=== PATIENT | male | born 1955 | race Caucasian/White ===

== ENCOUNTER 2021-11-22 21:39 | Emergency (ER) | payer BC, SELFPAY ==
--- NOTE | ~2021-11-22 | CT_ITS ---
EXAMINATION: CT brain wo con DATE: 11/22/2021 23:07 INDICATION: Fall with head injury and left forehead laceration TECHNIQUE: Computed tomography (CT) of the head was performed without intravenous contrast. Sagittal and coronal reconstructions were performed. The mA was adjusted according to patient size. Iterative reconstruction technique was employed. The dose-length product was 681.00 mGy-cm. COMPARISON: None FINDINGS: Small hematoma along the left frontal scalp likely at the site of the reported laceration. No fractur e. No acute intracranial hemorrhage, acute infarction or abnormal extra axial fluid collection. There is mild scattered white matter hypoattenuation consistent with chronic small vessel ischemic disease . Symmetric prominence of the sulci consistent with mild age-appropriate diffuse cerebral volume loss . Ventricles are normal and symmetric. No mass/mass effect. The orbits and mastoid air cells are norm al. There are several scattered small sclerotic bone lesions in the skull. Dental disease with dental caries and multiple periapical erosions on the maxilla. Mild mucosal thickening in the left maxillar y sinus. IMPRESSION: 1. Mild age-related changes in the brain. No fracture or acute intracranial process. 2. Several scattered small sclerotic lesions in the skull with differential including bone islands, f ibrous dysplasia or metastatic disease. Correlate for any history of prior malignancy and consider mehran ne scan for further evaluation. Dr. Ordonez discussed these findings with Dr. Barrientos at 9:10 AM. Reviewed, dictated and finalized at location A. IMPRESSION: 1. Mild age-related changes in the brain. No fracture or acute intracranial pro cess. 2. Several scattered small sclerotic lesions in the skull with differential inc luding bone islands, fibrous dysplasia or metastatic disease. Correlate for any history of prior malignancy and consider bone scan for further evaluation. Dr. Ordonez discussed these findings with Dr. Barrientos at 9:10 AM.
[2021-11-22 21:42] VITALS: BP 113/73; PULSE 100; RESP 14; TEMP 36.2; O2SAT 100
[2021-11-22 22:47] VITALS: BP 94/62; PULSE 94; RESP 15; O2SAT 100
--- NOTE | 2021-11-22 22:53 | ECG_ITS ---
Measurements Intervals [place] Rate: 91 P: 79 ME: 143 QRS: 88 QRSD: 93 T: -80 QT: 347 QTc: 428 Interpretive Statements SINUS RHYTHM BORDERLINE ST-T WAVE ABNORMALITY- DIFFUSE LEADS BASELINE ARTIFACT- I, II, III, AVR, AVL, AVF, V1-V6 BORDERLINE ECG Electronically Signed On 11-23-2021 7:02:07 CDT by Moiz Barger D.O.
[2021-11-22] MEDS: TETANUS,DIPHTHERIA,AC PERTUSSIS ADULT (0.5 ML) BOOSTRIX IM (23:27)
[2021-11-22 23:40] VITALS: PULSE 87; RESP 25
[2021-11-22 23:45] VITALS: RESP 14
--- NOTE | 2021-11-22 23:48 | ED.HEATRA ---
HPI - Head Injury General Chief complaint: Head Injury <Jackson Lynn MD - Last Filed: 11/23/21 06:56> Stated complaint: FALL <Jackson Lynn MD - Last Filed: 11/23/21 06:56> Time Seen by Provider: 11/22/21 22:48 <Jackson Lynn MD - Last Filed: 11/23/21 06:56> Source: patient, EMS, RN notes reviewed and old records reviewed <Jackson Lynn MD - Last Filed: 11/23/21 06:56> History of Present Illness HPI Narrative: Patient presents with a fall. He was standing up from his wheelchair fell forward and was referred to the ER for further evaluation. Patient does report he fell he says it hurts here and there but does moan in response to some questions. <Jackson Lynn MD - Last Filed: 11/23/21 06:56> Related Data Allergies/Adverse reactions: Allergies Allergy/AdvReac Type Severity Reaction Status Date / Time No Known Allergies Allergy Verified 11/22/21 21:47 <Jackson Lynn MD - Last Filed: 11/23/21 06:56> Review of Systems Review of Systems: ROS unobtainable: Yes other (Patient moans in response to some questions) <Jackson Lynn MD - Last Filed: 11/23/21 06:56> Exam Narrative: GENERAL: Well-appearing, well-nourished, and in no acute distress. HEAD: Normocephalic, linear laceration on the lateral aspect of his head approximately 4 cm no active bleeding no deep space tissue injuries appreciated EYES: PERRLA and EOMI. ENT: Nares clear, no rhinorrhea or epistaxis. Mucous membranes moist. NECK: Supple. No masses. No JVD CHEST: Clear to auscultation. No respiratory distress. No wheezes rales or rhonchi HEART: Regular rate and rhythm. No murmur heard. Normal peripheral pulses. ABDOMEN: Soft, nontender, nondistended, EXTREMITIES: Normal range of motion. No edema. SKIN: Warm, dry, no rash. NEURO: 4-4 strength in all extremities sensation intact to light touch in all extremities cranial nerves II through XII are intact alert knows his name knows he fell thinks he is at [facility] reports he does not know the year. PSYCH: Normal mood and affect. <Jackson Lynn MD - Last Filed: 11/23/21 06:56> Course Reevaluation(s) Reevaluation #1: Patient resting comfortably <Jackson Lynn MD - Last Filed: 11/23/21 06:56> Date: 11/23/21 <Jackson Lynn MD - Last Filed: 11/23/21 06:56> Time: 02:53 <Jackson Lynn MD - Last Filed: 11/23/21 06:56> Vital Signs Vital signs: Vital Signs Temperature 36.2 C L 11/22/21 21:42 Pulse Rate 100 11/22/21 21:42 Respiratory Rate 14 11/22/21 21:42 Blood Pressure 113/73 11/22/21 21:42 Pulse Oximetry 100 11/22/21 21:42 Temperature 36.2 C L 11/22/21 21:42 Pulse Rate 72 11/23/21 02:24 Respiratory Rate 16 11/23/21 02:24 Blood Pressure 104/60 11/23/21 02:24 Pulse Oximetry 98 11/23/21 02:24 <Jackson Lynn MD - Last Filed: 11/23/21 06:56> Vital Signs Temperature 36.2 C L 11/22/21 21:42 Pulse Rate 100 11/22/21 21:42 Respiratory Rate 14 11/22/21 21:42 Blood Pressure 113/73 11/22/21 21:42 Pulse Oximetry 100 11/22/21 21:42 Temperature 36.2 C L 11/22/21 21:42 Pulse Rate 72 11/23/21 02:24 Respiratory Rate 16 11/23/21 02:24 Blood Pressure 104/60 11/23/21 02:24 Pulse Oximetry 98 11/23/21 02:24 <RICHARD Pelaez Last Filed: 11/23/21 03:57> Procedures Laceration Laceration 1: Date: 11/23/21 <RICHARD Pelaez Last Filed: 11/23/21 03:57> Time: 01:00 <RICHARD Pelaez Filed: 11/23/21 03:57> Site: scalp (temporal forehead) <RICHARD Pelaez Last Filed: 11/23/21 03:57> Side (If applicable): left <RICHARD Pelaez Last Filed: 11/23/21 03:57> Size (cm): 3 <RICHARD Pelaez Last Filed: 11/23/21 03:57> Description: linear <RICHARD Pelaez Last Filed: 11/23/21 03:57> Depth: simple, single lay
[2021-11-22] MEDS: SODIUM CHLORIDE 0.9% IV 500 ML 999 ML IV CONT (23:51)
[2021-11-22 23:57] LABS: Basophils Absolute Auto 0.1 K/mm3 (0.0-0.1); Basophils Percent Auto 0.4 % (0.2-1.2); Eosinophils Percent Auto 0.3 % (0-4.4); Hematocrit 35.9 % (42.0-52.0); Hemoglobin 10.9 g/dL (14.0-18.0); Immature Granulocyte Absolute 0.05 K/mm3 (0.00-0.031); Immature Granulocyte Percent A 0.4 % (0-0.5); Lymphocytes Absolute Auto 1.41 K/mm3 (0.9-3.2); Mean Corpuscular HGB Conc 30.4 g/dl (32-36); Mean Corpuscular Hemoglobin 29.4 pg (26-34); Mean Corpuscular Volume 96.8 fl (80-100); Mean Platelet Volume 9.9 fl (7.4-10.4); Monocytes Percent Auto 7.4 % (2.6-8.5); Neutrophils Absolute Auto 10.3 K/mm3 (1.3-6.7); Neutrophils Percent Auto 80.5 % (45.5-73.1); Platelet Count Result 239 k/mm3 (150-375); Red Blood Count 3.71 M/mm3 (4.6-6.20); Red Cell Distribution Width 14.8 % (11.5-14.5); White Blood Count 12.8 K/mm3 (4.5-10.0)
[2021-11-23] VITALS: PULSE 89; RESP 14
[2021-11-23 00:01] VITALS: BP 102/62; PULSE 84; RESP 14
[2021-11-23 00:08] LABS: Alanine Aminotransferase 9 U/L (6-50); Albumin Level 2.8 g/dL (3.5-5.1); Alkaline Phosphatase 87 U/L (38-126); Anion Gap 6 mmol/L (8-16); Aspartate Amino Transferase 16 U/L (17-59); Bilirubin,Total 0.6 mg/dL (0.2-1.3); Blood Urea Nitrogen 11 mg/dL (9-20); Calcium 8.1 mg/dL (8.4-10.2); Carbon Dioxide 29 mmol/L (22-30); Chloride 105 mmol/L (98-107); Estimated CRCL calculation 89 ml/min; Estimated Glomerular Filt Rate > 60; Glucose 98 mg/dL (65-110); Potassium 3.5 mmol/L (3.4-5.0); Sodium 140 mmol/L (137-145)
[2021-11-23] MEDS: SODIUM CHLORIDE 0.9% IV 500 ML 999 ML IV CONT (01:09)
[2021-11-23 02:13] LABS: Appearance Urine Clear (Clear); Bilirubin Urine 1+ (Negative); Blood Urine 1+ (Negative); Color Urine Yellow (Yellow); Glucose Urine UA Negative (Negative); Ketones Urine Trace mg/dL (Negative); Leukocyte Esterase Ur Negative LEU/UL (Negative); Nitrate Urine Negative (Negative); Protein Urine 1+ mg/dL (Negative); Specific Grav Ur >= 1.030 (1.001-1.035); Urobilinogen Urine 0.2 mg/dL (<2.0); pH Urine 5.5 (5.0-9.0)
[2021-11-23 02:23] LABS: Add Urine Microscopic? YES; Calcium Oxalate Crystals Urine Present /hpf; RBC Urine 21-50 /hpf (0-2); WBC Urine 21-30 /hpf
[2021-11-23 02:24] VITALS: BP 104/60; PULSE 72; RESP 16; O2SAT 98
[2021-11-23 06:54] VITALS: BP 102/72; PULSE 72; RESP 18; O2SAT 97
--- NOTE | 2021-11-23 09:31 | PC.NURSE ---
CT NOTIFIED THAT PT NEEDS A BONE SCAN. THIS RN SPOKE WITH CALI AT [facility] TO NOTIFY THEM AND SHE SAID SHE WOULD LET DR ACKERMAN KNOW.
== END 2021-11-23 08:40 ==
PROVIDERS: Emergency Provider Emergency Medicine; PCP Internal Medicine
DX: S01.81XA Laceration without foreign body of other part of head, initial encounter (principal); Z23 Encounter for immunization; R94.31 Abnormal electrocardiogram [ECG] [EKG]; R93.0 Abnormal findings on diagnostic imaging of skull and head, not elsewhere classified; W05.0XXA Fall from non-moving wheelchair, initial encounter
CPT/HCPCS: 12002; 36415; 70450; 80053; 81001; 85025; 87086; 87088; 90471; 90715; 93005; 96360; 96361; 99284; J7040

== ENCOUNTER 2022-02-01 03:41 | Emergency (ER) | payer BC, SELFPAY ==
[2022-02-01 03:42] VITALS: BP 91/67; PULSE 106; RESP 20; TEMP 38; O2SAT 100
--- NOTE | 2022-02-01 03:56 | ED_ITS ---
HPI - GI Bleed General Chief complaint: GI Bleed Stated complaint: coffee ground emesis. ON HOSPICE Time Seen by Provider: 02/01/22 03:55 History of Present Illness HPI Narrative: Patient is a 66-year-old male who is under hospice care, DNR, brought in by EMS after a coffee-ground emesis at the shelter. custodial staff states that they called the hospice nurse and was told that I can tell you not to send him and I can tell you to send him . Unable to get any history from the patient due to his current condition. Related Data Allergies Allergy/AdvReac Type Severity Reaction Status Date / Time No Known Allergies Allergy Verified 11/22/21 21:47 Review of Systems Review of Systems: ROS unobtainable: Yes unobtainable due to medical condition and unobtainable due to mental status Exam Const: Other: Frail, ill-appearing, severe distress, nonverbal HENMT: Other: Normocephalic atraumatic, dry mucous membranes Eyes: Other: PERRLA Resp: Other: No respiratory distress, lungs are clear to auscultation bilaterally Cardio: Other: Tachycardic, positive for murmur, no gallops or rubs GI: Other: Soft, decreased bowel sounds Neuro: Other: Lethargic, unable to follow any commands, nonverbal Course Vital Signs Vital signs: Vital Signs Temperature 38.0 C H 02/01/22 03:42 Pulse Rate 106 H 02/01/22 03:42 Respiratory Rate 20 02/01/22 03:42 Blood Pressure 91/67 L 02/01/22 03:42 Pulse Oximetry 100 02/01/22 03:42 Oxygen Delivery Room Air 02/01/22 03:42 Temperature 38.0 C H 02/01/22 03:42 Pulse Rate 106 H 02/01/22 03:42 Respiratory Rate 20 02/01/22 03:42 Blood Pressure 91/67 L 02/01/22 03:42 Pulse Oximetry 100 02/01/22 03:42 Oxygen Delivery Room Air 02/01/22 03:42 MDM - GI Bleed MDM Narrative Medical decision making narrative: Discussed with niece who is his healthcare power of deputy commonwealth's attorney, does not want any intervention done just keep him comfortable pain meds and nausea medications okay otherwise no lab work or any other work-up Discharge Plan Discharge Clinical Impression: Acute GI bleeding, Fever Patient Disposition: [place] Alf[place]Asst Living Condition: Guarded Prognosis Instructions: Gastrointestinal Bleeding (ED) Additional Instructions: Call hospice nurse/hospice company for further instructions on his care Prescriptions: No Action cephalexin 500 mg capsule 500 mg PO Q12H Qty: 14 0RF Follow-up/Referrals: Bernard,MD Yasmany [Primary Care Provider] - Stand Alone Forms: Retirement Discharge Time of Disposition: 04:04
[2022-02-01 04:00] VITALS: BP 82/66; PULSE 108; RESP 18; O2SAT 100
--- NOTE | 2022-02-01 04:03 | PC.NURSE ---
Pts neice and decison maker Cheryl called and was updated on patients transfer to ED. States she does not want invasive treatments done and just wants her uncle to be comfortable. She gives permission for pain and nausea medication but is declining further testing or labwork. Cheryl to be called and updated when he goes back to [place].
[2022-02-01] MEDS: MORPHINE SULFATE (*CRX) 2 MG/ML INJ IV PUSH (04:15)
[2022-02-01] MEDS: ONDANSETRON INJ 4 MG/2 ML VIAL IV PUSH (04:17)
[2022-02-01] MEDS: PANTOPRAZOLE SODIUM IV 40 MG VIAL 80 MG IV PUSH (04:56)
[2022-02-01] MEDS: METOCLOPRAMIDE HCL INJ 10 MG/2 ML VIAL IV PUSH (04:56)
--- NOTE | 2022-02-01 04:57 | PC.NURSE ---
Pt had small amt of emesis. Additional nausea medication given.
--- NOTE | 2022-02-01 04:57 | PC.NURSE ---
Mouth suctioned for comfort.
[2022-02-01 04:58] VITALS: BP 75/53; PULSE 108; RESP 16; O2SAT 100
[2022-02-01] MEDS: SODIUM CHLORIDE 0.9% IV 1,000 ML 999 ML IV CONT (05:16)
--- NOTE | 2022-02-01 05:17 | PC.NURSE ---
called [facility] to request transport. ETA [id number]
--- NOTE | 2022-02-01 05:20 | PC.NURSE ---
Pt has stopped moaning and is resting more comfortably. Pts olivia Luna called and updated. Annalee called for transport back to [place]. Report called to [place].
--- NOTE | 2022-02-01 06:28 | PC.NURSE ---
[facility] here.
[2022-02-01 06:38] VITALS: BP 72/52; PULSE 98; RESP 14; O2SAT 97
== END 2022-02-01 06:39 | disposition hospice, inpatient (51) ==
PROVIDERS: Emergency Provider Emergency Medicine; PCP Internal Medicine
DX: K92.2 Gastrointestinal hemorrhage, unspecified (principal); R50.9 Fever, unspecified; Z66 Do not resuscitate
CPT/HCPCS: 96361; 96365; 96375; 99284; C9113; J0131; J2270; J2405; J2765; J7030